=== PATIENT | male | born 1940 | race Hispanic/Latino ===

== ENCOUNTER 2021-01-05 21:20 | Observation (INO) | payer SELFPAY ==
[2021-01-05] MEDS ORDERED: Senokot S 8.6-50 MG TAB PO PRN (23:16)
[2021-01-05] MEDS ORDERED: Acetaminophen 325 MG TAB PO PRN (23:16)
[2021-01-05] MEDS ORDERED: HYDROcodone/Acetaminophen 7.5/325 mg Tablet PO PRN (23:16)
[2021-01-05] MEDS ORDERED: Bisacodyl 5 MG TAB PO PRN (23:16)
[2021-01-05] MEDS ORDERED: Ondansetron PF 4 MG/2 ML Vial IVP PRN (23:16)
[2021-01-05] MEDS ORDERED: HYDROcodone/Acetaminophen 5/325 mg Tablet PO PRN (23:16)
[2021-01-05 23:22] VITALS: BMI 27.3
[2021-01-05] MEDS ORDERED: hydrALAZINE 20 MG/ML VIAL SLOW IVP PRN (23:23)
[2021-01-05] MEDS ORDERED: Sodium Chloride 0.9% 1,000 ML IV SCH (23:30)
[2021-01-05] MEDS ORDERED: Penicillin V Potassium 250 MG TAB PO SCH (23:59)
[2021-01-06 05:17] LABS: #Eosinphils 0.1 thou/uL (0.0-0.7); #Lymphocytes 2.8 thou/uL (1.20-3.40); #Monocytes 0.7 thou/uL (0.11-0.59); #Neutrophils 4.6 thou/uL (1.40-6.50); %Basophils 0.4 % (0.0-1.0); %Eosinophils 0.7 % (0.0-10.0); %Lymphocytes 34.2 % (21.0-51.0); %Monocytes 8.1 % (0.0-10.0); %Neutrophils 56.7 % (42.0-75.0); Hemoglobin 13.9 g/dL (14.0-18.0); Mean Corpuscular HGB CONC 35.3 g/dL (32.0-36.0); Mean Corpuscular Hemoglobin 32.7 pg (27.0-31.0); Mean Corpuscular Volume 92.6 fL (78.0-98.0); Mean Platelet Volume 6.4 fL (7.4-10.4); Platelet Count 257 thou/uL (130-400); RBC Distribution Width 12.1 % (11.5-14.5); Red Blood Cell (RBC) Count 4.25 mill/uL (4.70-6.10); White Blood Cell (WBC) Count 8.2 thou/uL (4.8-10.8)
[2021-01-06 05:27] LABS: Hemoglobin A1c 5.1 % (4.0-6.0)
[2021-01-06 06:17] LABS: Albumin 3.6 g/dL (3.4-4.8)
[2021-01-06 06:18] LABS: Calcium 9.4 mg/dL (7.8-10.44); Chloride 107 mmol/L (98-107); Potassium 3.9 mmol/L (3.5-5.1); Sodium 138 mmol/L (136-145)
[2021-01-06 06:19] LABS: Globulin 3.4 g/dL (2.4-3.5); Glucose 95 mg/dL (83-110); Triglycerides 68 mg/dL (Less than 150)
[2021-01-06 06:21] LABS: Anion Gap 11 mmol/L (10-20); Bilirubin, Total 0.6 mg/dL (0.2-1.2); Carbon Dioxide 24 mmol/L (23-31)
[2021-01-06 06:22] LABS: Alkaline Phosphatase 93 U/L (40-110); Calc. Creatinine Clearance 57 mL/min (70-130)
[2021-01-06 06:23] LABS: BUN (Urea Nitrogen) 17 mg/dL (8.4-25.7)
[2021-01-06 06:24] LABS: AST (SGOT) 18 U/L (5-34); Cholesterol 186 mg/dl (< 200 Desired)
[2021-01-06 06:25] LABS: ALT (SGPT) 15 U/L (8-55); Cardiac Risk 4.8 (Less than 4.5); HDL Cholesterol 39 mg/dL (>60 Neg Risk); LDL Cholesterol, Calculated 133 mg/dL
[2021-01-06] MEDS: Penicillin V Potassium 250 MG TAB PO SCH ×3 (08:04→17:23)
[2021-01-06] MEDS ORDERED: Aspirin 325 mg Enteric Coated Tablet PO SCH (09:00)
[2021-01-06] MEDS ORDERED: Famotidine/PF 20 mg/2ml Vial SLOW IVP SCH ×2 (09:00)
[2021-01-06 15:49] VITALS: BP 128/79; TEMP 98.2
== END 2021-01-06 17:43 | disposition home or self-care (01) ==
LOC: NEURO 21:20
PROVIDERS: ADMIT Student in an Organized Health Care Education/Training Program; ATTEND Internal Medicine
DX: G45.9 Transient cerebral ischemic attack, unspecified (principal); I10 Essential (primary) hypertension; N17.9 Acute kidney failure, unspecified; K04.7 Periapical abscess without sinus; Q28.2 Arteriovenous malformation of cerebral vessels; G40.909 Epilepsy, unspecified, not intractable, without status epilepticus; I08.1 Rheumatic disorders of both mitral and tricuspid valves; Z87.891 Personal history of nicotine dependence
CPT/HCPCS: 36415; 80053; 80061; 83036; 85025; 93306; 93880; 96374; G0378; J0360; S0028